=== PATIENT | female | born 2000 | race Caucasian/White ===

== ENCOUNTER 2025-07-22 19:13 | Observation (INO) | payer MEDICAID, SELFPAY ==
[2025-07-22] VITALS (19 sets, daily range): BP systolic 98–101; BP diastolic 51–63; PULSE 65–100; TEMP 36.6–36.7; O2SAT 95–100; BMI 26.4
[2025-07-22 19:45] LABS: Hematocrit 34.7 % (37.0-47.0); Hemoglobin 12.2 g/dL (12.0-15.0); Immature Granulocyte Percent A 0.8 % (0-0.5); Lymphocytes Absolute Auto 1.45 K/mm3 (0.9-3.2); Mean Corpuscular HGB Conc 35.2 g/dl (32-36); Mean Corpuscular Hemoglobin 30.5 pg (26-34); Mean Corpuscular Volume 86.8 fl (80-100); Nucleated Red Blood Cells Absolute Auto 0.000 K/mm3 (0.0-0.012); Nucleated Red Blood Cells Perc 0.0 % (0.0-0.2); Platelet Count Result 268 k/mm3 (150-375); Red Blood Count 4.00 M/mm3 (4.2-5.4); White Blood Count 17.8 K/mm3 (4.5-10.0)
[2025-07-22] MEDS: METOCLOPRAMIDE HCL INJ 10 MG/2 ML VIAL IV PUSH (19:53)
[2025-07-22] MEDS: DEXTROSE 5%/LACTATED RINGERS 1,000 ML 999 ML IV CONT (19:54)
[2025-07-22 20:05] LABS: Alanine Aminotransferase 19 U/L (6-35); Albumin Level 4.6 g/dL (3.5-5.1); Alkaline Phosphatase 124 U/L (38-126); Anion Gap 15 mmol/L (4-12); Aspartate Amino Transferase 24 U/L (14-36); Bilirubin,Total 0.9 mg/dL (0.2-1.3); Blood Urea Nitrogen 6 mg/dL (7-17); Calcium 9.9 mg/dL (8.4-10.2); Carbon Dioxide 17 mmol/L (22-30); Chloride 104 mmol/L (98-107); Estimated CRCL calculation 102 ml/min; Estimated Glomerular Filt Rate > 60; Glucose 109 mg/dL (65-110); Potassium 3.2 mmol/L (3.4-5.0); Sodium 136 mmol/L (137-145); Total Protein 7.9 g/dL (6.3-8.2)
--- NOTE | 2025-07-22 20:28 | OBADM ---
This patient, Rosemarie Zamarripa, admitted to the OB room [facility] for observation. Patient/family oriented to hospital policies and general routines including ID bracelet, bed and alarms, visiting hours, pain management, procedures, bathroom and other care routines, personal items, smoking policy, room service/diet, and visiting hours. Patient/Family are encouraged to report perceived risks to care and to ask questions if they do not understand what they are told or what they should do.
[2025-07-22 20:31] LABS: Add Urine Microscopic? YES; Appearance Urine Cloudy (Clear); Glucose Urine UA Negative (Negative); Leukocyte Esterase Ur 1+ LEU/UL (Negative); Nitrate Urine Negative (Negative); Non Pathogenic Casts 0-2; Specific Grav Ur 1.024 (1.001-1.035)
--- NOTE | 2025-07-22 20:36 | PC.NURSE ---
1912- Pt arrives to unit from ED with complaints of n/v and abd pain for past 24 hours. Pt denies and vaginal bleeding or LOF. Abd soft to palpation. Pt state she has been unable to keep down solids or liquids for 24 hours and has been previously seen in the hospital for the same symptoms in May 2025. Pt denies any complications this other than being unable to complete glucose testing due to vomiting. 1941- RN called MD. RN reported pts arrival to unit with N/V and abdominal pain for the past 24 hours. RN reported difficulty monitor heart tones due to maternal movement. RN reported that CBC, CMP, had been sent and had not yet resulted. Orders received, see EMAR
[2025-07-22] MEDS: LACTATED RINGERS 1,000 ML 200 ML IV CONT (21:00)
--- NOTE | 2025-07-22 21:02 | PC.NURSE ---
2049- RN called MD. RN reported results of UA,CBC, CMP. RN reported that pt stating she feels that her nausea and vomiting improved since Reglan administration and completion of IV fluid bolus. no new orders received at this time. 2054 - RN discussed poc with pt and significant other. pt agreeable to poc.
[2025-07-22] MEDS: ONDANSETRON INJ 4 MG/2 ML VIAL IV PUSH (23:14)
[2025-07-23] MEDS: PROMETHAZINE HCL 12.5 MG SUPP.RECT RECTAL (00:40)
[2025-07-23] MEDS: LACTATED RINGERS 1,000 ML 200 ML IV CONT (02:00)
--- NOTE | 2025-07-23 03:03 | PC.NURSE ---
RN called . RN clarified Reglan order. See EMAR
[2025-07-23] MEDS: METOCLOPRAMIDE HCL INJ 10 MG/2 ML VIAL IV PUSH ×2 (03:12→09:16)
[2025-07-23 04:35] VITALS: PULSE 100; O2SAT 100
[2025-07-23 04:36] VITALS: BP 103/56; PULSE 80
[2025-07-23 04:37] VITALS: RESP 18; TEMP 37.3
[2025-07-23 08:17] VITALS: BP 121/65; PULSE 66; PULSE 79; O2SAT 86
[2025-07-23] MEDS: ONDANSETRON INJ 4 MG/2 ML VIAL IV PUSH (08:28)
[2025-07-23] MEDS: FAMOTIDINE 20 MG/2 ML VIAL IV PUSH (08:31)
--- NOTE | 2025-07-23 09:39 | PC.NURSE ---
IV DC'd per MD orders to DC pt. home.
--- NOTE | 2025-07-23 09:42 | PM.OBTRLD ---
OB - Triage/Final Diagnosis Visit Information Date of evaluation: 07/23/25 Reason for evaluation: other (Nausea/vomiting/dehydration) Comments/Additional reasons for admission: Last pm patient with persistent N/V for over 24 hours. On arrival, vomiting and retching every few minutes. Labs with increased WBC and +4 ketones. Patient IV hydrated and Reglan IV. Now making good urine, clear and feeling much better. plan dc home with reglan po prn. I have assessed the risk for this patient, Rosemarie Zamarripa, and determined that she would benefit from observation care. Evaluation Laboratory results: Laboratory Tests 07/22/25 19:34 WBC 17.8 H RBC 4.00 L Hgb 12.2 Hct 34.7 L MCV 86.8 MCH 30.5 MCHC 35.2 RDW 12.3 Plt Count 268 MPV 10.9 H Immature Gran % (Auto) 0.8 H Neut % (Auto) 85.9 H Lymph % (Auto) 8.2 L [place] % (Auto) 4.8 Eos % (Auto) 0.1 Baso % (Auto) 0.2 Lymph # (Auto) 1.45 [place] # (Auto) 0.9 H Eos # (Auto) 0.0 Baso # (Auto) 0.0 Abs Immat Gran (auto) 0.15 H Absolute Neuts (auto) 15.3 H Absolute Nucleated RBC 0.000 Nucleated RBC % 0.0 Sodium 136 L Potassium 3.2 L Chloride 104 Carbon Dioxide 17 L Anion Gap 15 H BUN 6 L Creatinine 0.60 L Estim Creat Clear Calc 102 Estimated GFR > 60 Glucose 109 Calcium 9.9 Total Bilirubin 0.9 AST 24 ALT 19 Alkaline Phosphatase 124 Total Protein 7.9 Albumin 4.6 Urine Color Yellow Urine Appearance Cloudy H Urine pH 6.0 Ur Specific [place] 1.024 Urine Protein 1+ H Urine Glucose (UA) Negative Urine Ketones 4+ H Ur Blood (Man) Negative Urine Nitrate Negative Urine Bilirubin Negative Urine Urobilinogen 1.0 Leukocyte Esterase Rfl 1+ H Urine RBC 0-2 Urine WBC 6-10 H Ur Squamous Epith Cells Moderate Urine Bacteria 2+ H Urine Casts 0-2 Vital signs: Vital Signs - 24 hr 07/22/25 19:24 07/22/25 19:31 07/22/25 19:34 Temperature Pulse Rate Respiratory Rate Blood Pressure Pulse Oximetry 100 97 98 Oxygen Delivery 07/22/25 19:50 07/22/25 19:55 07/22/25 19:57 Temperature 97.9 F Pulse Rate 73 Respiratory Rate Blood Pressure 101/63 Pulse Oximetry 97 99 Oxygen Delivery 07/22/25 20:00 07/22/25 20:05 07/22/25 20:10 Temperature Pulse Rate Respiratory Rate Blood Pressure Pulse Oximetry 100 97 98 Oxygen Delivery 07/22/25 20:15 07/22/25 20:20 07/22/25 20:25 Temperature Pulse Rate Respiratory Rate Blood Pressure Pulse Oximetry 99 98 96 Oxygen Delivery 07/22/25 20:28 07/22/25 20:30 07/22/25 20:35 Temperature Pulse Rate Respiratory Rate Blood Pressure Pulse Oximetry 95 96 Oxygen Delivery Room Air 07/22/25 20:40 07/22/25 20:45 07/22/25 20:50 Temperature Pulse Rate Respiratory Rate Blood Pressure Pulse Oximetry 95 100 97 Oxygen Delivery 07/22/25 23:15 07/22/25 23:16 07/23/25 04:35 Temperature 98.1 F Pulse Rate 81 Respiratory Rate Blood Pressure 98/51 L Pulse Oximetry 96 100 Oxygen Delivery 07/23/25 04:36 07/23/25 04:37 07/23/25 08:17 Temperature 99.1 F Pulse Rate 80 79 Respiratory Rate 18 Blood Pressure 103/56 L 121/65 Pulse Oximetry 86 L Oxygen Delivery Final Diagnosis (1) Gastroenteritis: Code(s): K52.9 - Noninfective gastroenteritis and colitis, unspecified Status: Acute (2) : Code(s): Z34.90 - Encounter for supervision of normal , unspecified, unspecified trimester Status: Acute (3) Dehydration: Code(s): E86.0 - Dehydration Status: Acute
== END 2025-07-23 10:22 | disposition home or self-care (01) ==
PROVIDERS: Admitting Provider Obstetrics & Gynecology Gynecology; Visit Provider Obstetrics & Gynecology Gynecology
DX: O99.613 Diseases of the digestive system complicating pregnancy, third trimester (principal); K52.9 Noninfective gastroenteritis and colitis, unspecified; E86.0 Dehydration; Z3A.30 30 weeks gestation of pregnancy
CPT/HCPCS: 36415; 59025; 80053; 81001; 85025; 96361; 96374; 96375; 96376; A9270; G0378; G0379; J2405; J2765; J7120; J7121